=== PATIENT | female | born 1960 | race Caucasian/White ===

== ENCOUNTER 2016-10-03 22:29 | Emergency (ER) | payer OTHER ==
[~2016-10-03] VITALS: Ht 152.4 cm; Wt 70.3 kg
[2016-10-03 22:33] VITALS: BP 119/78
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
[2016-10-04] MEDS ORDERED: IBUPROFEN600 M1 PO (00:49)
[2016-10-04] MEDS ORDERED: CYCLOBENZAPRINE10 M1 PO (00:49)
== END 2016-10-04 01:06 ==
LOC: ERH 22:29
DX: S16.1XXA Strain of muscle, fascia and tendon at neck level, initial encounter (principal); S09.90XA Unspecified injury of head, initial encounter; V49.40XA Driver injured in collision with unspecified motor vehicles in traffic accident, initial encounter; Y92.410 Unspecified street and highway as the place of occurrence of the external cause